=== PATIENT | female | born 1935 | race Caucasian/White ===

== ENCOUNTER → 2021-02-18 | Outpatient (CLI) | payer MEDICARE, OTHER | END | disposition home or self-care (01) | LOC: CFH 09:35 | PROVIDERS: ATTEND Internal Medicine | DX: S01.90XA Unspecified open wound of unspecified part of head, initial encounter (principal); L59.9 Disorder of the skin and subcutaneous tissue related to radiation, unspecified; X58.XXXA Exposure to other specified factors, initial encounter; Y93.89 Activity, other specified; Y92.89 Other specified places as the place of occurrence of the external cause; Y99.8 Other external cause status | CPT/HCPCS: 70250; 71046 ==

== ENCOUNTER → 2021-02-18 | Outpatient (CLI) | payer MEDICARE, OTHER | END | disposition home or self-care (01) | LOC: WOUND 08:31 | PROVIDERS: ATTEND Internal Medicine | DX: L59.8 Other specified disorders of the skin and subcutaneous tissue related to radiation (principal); S01.80XA Unspecified open wound of other part of head, initial encounter; S01.90XA Unspecified open wound of unspecified part of head, initial encounter; M86.00 Acute hematogenous osteomyelitis, unspecified site; J43.9 Emphysema, unspecified; Z87.891 Personal history of nicotine dependence; Z85.828 Personal history of other malignant neoplasm of skin; X58.XXXA Exposure to other specified factors, initial encounter; Y93.89 Activity, other specified; Y92.89 Other specified places as the place of occurrence of the external cause; Y99.8 Other external cause status; Y84.2 Radiological procedure and radiotherapy as the cause of abnormal reaction of the patient, or of later complication, without mention of misadventure at the time of the procedure | CPT/HCPCS: 11042; G0463 ==

== ENCOUNTER → 2021-02-27 | Outpatient (CLI) | payer MEDICARE, OTHER | END | disposition home or self-care (01) | LOC: WOUND 08:57 | PROVIDERS: ATTEND Internal Medicine | DX: L59.8 Other specified disorders of the skin and subcutaneous tissue related to radiation (principal); S01.90XD Unspecified open wound of unspecified part of head, subsequent encounter; M86.00 Acute hematogenous osteomyelitis, unspecified site; C44.42 Squamous cell carcinoma of skin of scalp and neck; J44.9 Chronic obstructive pulmonary disease, unspecified; Z87.891 Personal history of nicotine dependence; Z99.81 Dependence on supplemental oxygen; X58.XXXD Exposure to other specified factors, subsequent encounter; Y84.2 Radiological procedure and radiotherapy as the cause of abnormal reaction of the patient, or of later complication, without mention of misadventure at the time of the procedure | CPT/HCPCS: 97597 ==

== ENCOUNTER 2021-03-06 09:30 | Outpatient (CLI) | payer MEDICARE, OTHER | END 2021-03-06 23:59 | disposition home or self-care (01) | LOC: WOUND 09:30 | PROVIDERS: ATTEND Internal Medicine | DX: L59.8 Other specified disorders of the skin and subcutaneous tissue related to radiation (principal); S01.80XD Unspecified open wound of other part of head, subsequent encounter; M86.00 Acute hematogenous osteomyelitis, unspecified site; C44.42 Squamous cell carcinoma of skin of scalp and neck; J43.9 Emphysema, unspecified; Z85.828 Personal history of other malignant neoplasm of skin; Z87.891 Personal history of nicotine dependence; Z99.81 Dependence on supplemental oxygen; X58.XXXD Exposure to other specified factors, subsequent encounter; Y84.2 Radiological procedure and radiotherapy as the cause of abnormal reaction of the patient, or of later complication, without mention of misadventure at the time of the procedure | CPT/HCPCS: 97597 ==

== ENCOUNTER 2021-03-20 09:24 | Outpatient (CLI) | payer MEDICARE, OTHER | END 2021-03-20 23:59 | disposition home or self-care (01) | LOC: WOUND 09:24 | PROVIDERS: ATTEND Internal Medicine | DX: L59.8 Other specified disorders of the skin and subcutaneous tissue related to radiation (principal); S01.80XD Unspecified open wound of other part of head, subsequent encounter; M86.00 Acute hematogenous osteomyelitis, unspecified site; C44.42 Squamous cell carcinoma of skin of scalp and neck; J43.9 Emphysema, unspecified; Z87.891 Personal history of nicotine dependence; Z85.828 Personal history of other malignant neoplasm of skin; Z99.81 Dependence on supplemental oxygen; X58.XXXD Exposure to other specified factors, subsequent encounter; Y84.2 Radiological procedure and radiotherapy as the cause of abnormal reaction of the patient, or of later complication, without mention of misadventure at the time of the procedure | CPT/HCPCS: 97597 ==

== ENCOUNTER → 2021-04-03 | Outpatient (CLI) | payer MEDICARE, OTHER | END | disposition home or self-care (01) | LOC: WOUND 09:22 | PROVIDERS: ATTEND Internal Medicine | DX: L59.8 Other specified disorders of the skin and subcutaneous tissue related to radiation (principal); S01.90XD Unspecified open wound of unspecified part of head, subsequent encounter; M86.00 Acute hematogenous osteomyelitis, unspecified site; C44.42 Squamous cell carcinoma of skin of scalp and neck; J43.9 Emphysema, unspecified; Z87.891 Personal history of nicotine dependence; Z99.81 Dependence on supplemental oxygen; Z85.828 Personal history of other malignant neoplasm of skin; X58.XXXD Exposure to other specified factors, subsequent encounter; Y84.2 Radiological procedure and radiotherapy as the cause of abnormal reaction of the patient, or of later complication, without mention of misadventure at the time of the procedure | CPT/HCPCS: 97597 ==

== ENCOUNTER 2021-04-17 09:28 | Outpatient (CLI) | payer MEDICARE, OTHER | END 2021-04-17 23:59 | disposition home or self-care (01) | LOC: WOUND 09:28 | PROVIDERS: ATTEND Internal Medicine | DX: L59.8 Other specified disorders of the skin and subcutaneous tissue related to radiation (principal); S01.80XD Unspecified open wound of other part of head, subsequent encounter; S01.90XD Unspecified open wound of unspecified part of head, subsequent encounter; M86.00 Acute hematogenous osteomyelitis, unspecified site; C44.42 Squamous cell carcinoma of skin of scalp and neck; J43.9 Emphysema, unspecified; Z87.891 Personal history of nicotine dependence; Z99.81 Dependence on supplemental oxygen; Z85.828 Personal history of other malignant neoplasm of skin; X58.XXXD Exposure to other specified factors, subsequent encounter; Y84.2 Radiological procedure and radiotherapy as the cause of abnormal reaction of the patient, or of later complication, without mention of misadventure at the time of the procedure | CPT/HCPCS: C5275; Q4166 ==

== ENCOUNTER → 2021-04-24 | Outpatient (CLI) | payer MEDICARE, OTHER | END | disposition home or self-care (01) | LOC: WOUND 09:58 | PROVIDERS: ATTEND Internal Medicine | DX: L59.8 Other specified disorders of the skin and subcutaneous tissue related to radiation (principal); S01.80XD Unspecified open wound of other part of head, subsequent encounter; S01.90XD Unspecified open wound of unspecified part of head, subsequent encounter; M86.00 Acute hematogenous osteomyelitis, unspecified site; C44.42 Squamous cell carcinoma of skin of scalp and neck; J43.9 Emphysema, unspecified; Z87.891 Personal history of nicotine dependence; Z99.81 Dependence on supplemental oxygen; Z85.828 Personal history of other malignant neoplasm of skin; X58.XXXD Exposure to other specified factors, subsequent encounter; Y84.2 Radiological procedure and radiotherapy as the cause of abnormal reaction of the patient, or of later complication, without mention of misadventure at the time of the procedure | CPT/HCPCS: G0463 ==

== ENCOUNTER 2021-05-01 10:11 | Outpatient (CLI) | payer MEDICARE, OTHER | END 2021-05-01 23:59 | disposition home or self-care (01) | LOC: WOUND 10:11 | PROVIDERS: ATTEND Internal Medicine | DX: L59.8 Other specified disorders of the skin and subcutaneous tissue related to radiation (principal); S01.80XD Unspecified open wound of other part of head, subsequent encounter; S01.90XD Unspecified open wound of unspecified part of head, subsequent encounter; M86.00 Acute hematogenous osteomyelitis, unspecified site; C44.42 Squamous cell carcinoma of skin of scalp and neck; J43.9 Emphysema, unspecified; Z87.891 Personal history of nicotine dependence; Z99.81 Dependence on supplemental oxygen; Z85.828 Personal history of other malignant neoplasm of skin; X58.XXXD Exposure to other specified factors, subsequent encounter; Y84.2 Radiological procedure and radiotherapy as the cause of abnormal reaction of the patient, or of later complication, without mention of misadventure at the time of the procedure | CPT/HCPCS: 97597 ==

== ENCOUNTER 2021-05-15 10:01 | Outpatient (CLI) | payer MEDICARE, OTHER | END 2021-05-15 23:59 | disposition home or self-care (01) | LOC: WOUND 10:01 | PROVIDERS: ATTEND Internal Medicine | DX: L59.8 Other specified disorders of the skin and subcutaneous tissue related to radiation (principal); S01.80XD Unspecified open wound of other part of head, subsequent encounter; M86.00 Acute hematogenous osteomyelitis, unspecified site; C44.42 Squamous cell carcinoma of skin of scalp and neck; J43.9 Emphysema, unspecified; Z87.891 Personal history of nicotine dependence; Z85.828 Personal history of other malignant neoplasm of skin; Z99.81 Dependence on supplemental oxygen; X58.XXXD Exposure to other specified factors, subsequent encounter; Y84.2 Radiological procedure and radiotherapy as the cause of abnormal reaction of the patient, or of later complication, without mention of misadventure at the time of the procedure | CPT/HCPCS: 97597 ==

== ENCOUNTER → 2021-06-08 | Outpatient (CLI) | payer MEDICARE, OTHER | END | disposition home or self-care (01) | LOC: WOUND 10:57 | PROVIDERS: ATTEND Internal Medicine | DX: L59.8 Other specified disorders of the skin and subcutaneous tissue related to radiation (principal); S01.80XD Unspecified open wound of other part of head, subsequent encounter; M86.00 Acute hematogenous osteomyelitis, unspecified site; C44.42 Squamous cell carcinoma of skin of scalp and neck; J43.9 Emphysema, unspecified; Z87.891 Personal history of nicotine dependence; Z85.828 Personal history of other malignant neoplasm of skin; Z99.81 Dependence on supplemental oxygen; X58.XXXD Exposure to other specified factors, subsequent encounter; Y84.2 Radiological procedure and radiotherapy as the cause of abnormal reaction of the patient, or of later complication, without mention of misadventure at the time of the procedure | CPT/HCPCS: 97597 ==